=== PATIENT | female | born 1960 | race African-American/Black ===

== ENCOUNTER 2019-07-10 20:21 | Emergency (ER) | payer MEDICAID ==
[~2019-07-10] VITALS: Ht 165.1 cm; Wt 75.0 kg
[2019-07-10] MEDS ORDERED: MORPHINE SULFATE 4 MG/ML CPJ (NOT FOR IM USE) IV ONE (21:45)
[2019-07-10] MEDS ORDERED: HYDRALAZINE 20MG/ML VIAL IV ONE (21:45)
[2019-07-10] MEDS ORDERED: ONDANSETRON HCL 4MG/2ML INJ IV ONE (21:45)
[2019-07-11 00:45] VITALS: BP 149/71
== END 2019-07-11 00:45 | disposition home or self-care (01) ==
LOC: ER 20:21
DX: S80.01XA Contusion of right knee, initial encounter (principal); X50.0XXA Overexertion from strenuous movement or load, initial encounter; Y93.89 Activity, other specified; Y92.89 Other specified places as the place of occurrence of the external cause; Y99.8 Other external cause status; E11.9 Type 2 diabetes mellitus without complications; I10 Essential (primary) hypertension; Z86.73 Personal history of transient ischemic attack (TIA), and cerebral infarction without residual deficits
CPT/HCPCS: 73502; 73552; 73560; 96374; 96375; 99283; J0360; J2270; J2405